=== PATIENT | female | born 1960 ===

== ENCOUNTER 2022-04-26 04:21 | Day surgery (SDC) | payer OTHER ==
[2022-04-22 16:29] VITALS: BMI 28.0
[2022-04-26] MEDS ORDERED: IBUPROFEN 600 MG TABLET (FP) PO PRN (11:29)
[2022-04-26] MEDS ORDERED: ONDANSETRON 4 MG/2 ML VIAL IVPUSH PRN ×2 (11:29→12:45)
[2022-04-26] MEDS ORDERED: IBUPROFEN 800 MG/8 ML IJ IVPB PRN (11:29)
[2022-04-26] MEDS ORDERED: oxyCODONE HCL 5 MG TABLET PO PRN ×2 (11:29→12:45)
[2022-04-26] MEDS ORDERED: ELECTROLYTE-148 SOLN 1,000 ML IV SCH (11:30)
[2022-04-26] MEDS ORDERED: GLYCOPYRROLATE 0.2 MG/1 ML VIAL ONE (11:39)
[2022-04-26] MEDS ORDERED: MIDAZOLAM HCL 2 MG/2 ML SINGLE DOSE VIAL ONE (11:39)
[2022-04-26] MEDS ORDERED: LACTATED RINGERS SOLUTION 1,000 ML IV SCH (12:45)
[2022-04-26] MEDS ORDERED: ACETAMINOPHEN 1000 MG/100 ML BAG IVPB ONE (13:30)
[2022-04-26 13:41] VITALS: RESP 18
[2022-04-26 15:15] VITALS: BP 122/67; PULSE 61; TEMP 97.8
== END 2022-04-26 16:04 | disposition home or self-care (01) ==
LOC: JASU-SURG 04:21
PROVIDERS: ATTEND Obstetrics & Gynecology
PROC: 0UDB8ZX Extraction of Endometrium, Via Natural or Artificial Opening Endoscopic, Diagnostic (ICD-10-PCS; principal; 2022-04-26 11:00)
DX: N95.0 Postmenopausal bleeding (principal)
CPT/HCPCS: 86850; 86900; 86901; 88305-TC; 94760